=== PATIENT | female | born 1930 | race Caucasian/White ===

== ENCOUNTER → 2017-08-08 | Outpatient (CLI) | payer OTHER, MEDICARE | LOC: BMCIMAGING 09:48 | PROVIDERS: ATTEND Internal Medicine | DX: R91.8 Other nonspecific abnormal finding of lung field (principal) ==

== ENCOUNTER → 2017-08-15 | Outpatient (CLI) | payer OTHER, MEDICARE | LOC: FIMAGING 15:40 | PROVIDERS: ATTEND Internal Medicine | DX: R91.1 Solitary pulmonary nodule (principal); E04.2 Nontoxic multinodular goiter; K80.20 Calculus of gallbladder without cholecystitis without obstruction ==

== ENCOUNTER 2018-01-30 18:17 | Inpatient (IN) | payer OTHER, MEDICARE ==
--- NOTE | 2018-01-30 19:12 | EDPHY ---
HPI/HX/ROS/PE/MDM Narrative: CHIEF COMPLAINT: Difficulty speaking HISTORY OF PRESENT ILLNESS: This patient is an 87 year old female with history of diabetes arriving with her family presenting with difficulty speaking. Symptoms began three days ago. She is able to speak slowly for about 2-3 sentences and then "locks up" and is unable to form her words properly. She feels as if she is unable to say the words she wants to say. Her at bedside states she has no history of Alzheimer's or dementia, but takes Aricept for bipolar disorder. 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 The patient additionally has history of UTIs which generally present as confusion. Three weeks ago, she took a course of Cipro for possible UTI. Three days ago when her current symptoms began, she took a second course of Cipro but her symptoms did not resolve. The patient denies fever, vomiting, or pain. She denies history of stroke or hypertension. No fever, chills, chest pain, shortness of breath, palpitations, vomiting, diarrhea, urinary complaints, headache, lightheadedness. REVIEW OF SYSTEMS: Aside from elements discussed in the HPI, a comprehensive 10-point review of systems was reviewed and is negative. PAST MEDICAL HISTORY: Diabetes. Chronic hip pain. Bipolar. Essential tremor. SOCIAL HISTORY: . Family at bedside. Lives in [place]. VITAL SIGNS: Reviewed by me GENERAL: Slightly overweight, pleasant, elderly female, alert. Resting comfortably in no respiratory distress. HEENT: Atraumatic. Eyes: No icterus, no injection. EOMI, No nystagmus. Mouth: Dry mucous membranes. No erythema or lesions. Neck: supple with no adenopathy. No tenderness. LUNGS: Clear to auscultation bilaterally, no wheezes, rhonchi or rales. CARDIAC: Regular rate and rhythm, no rubs, murmurs or gallops. ABDOMEN: Soft, nontender, nondistended, bowel sounds normal. BACK: No CVA tenderness. EXTREMITIES: No trauma. No edema. Range of motion is normal throughout. NEURO: Alert and oriented to person and place. Moving all extremities x4. Grossly nonfocal. Bilateral upper extremity tremor. SKIN: Warm and dry, no rash. PSYCHIATRIC: Normal mentation, no agitation. Portions of this note were transcribed by a medical observer. I personally performed a history, physical exam, medical decision making, and confirmed accuracy of information the transcribed note. ED Course: 87 y/o female presents with difficulty speaking worsening over the past three days. Plan for EKG, CT head, labs, including CBC, chemistries, troponin, liver, UA. 19:23 CT shows evidence of bilateral intracranial hemorrhagic metastatic disease. Plan for CT head with contrast for further evaluation. Troponin negative. Reassessed patient. She and her family deny any known history of cancer. Lung nodules were noted on prior imaging, but patient's family states they followed up regarding this and further evaluation including biopsy was negative for malignancy. Plan to admit for further evaluation. 20:[address] Steven, neurosurgeon. He recommends MRI and will consult during the patient's admission. 20:16 Consulted with hospitalist service. Dr. Hsieh accepts admission to ICU for altered mental status. intracranial hemorrhagic metastatic disease, and difficulty speaking. MDM: After the history was obtained and physical exam performed, the following differential for the patient's altered mental status was considered included but was not limited to hypoglycemia, electrolyte disturbances, intracranial hemorrhage, tumor, drug or alcohol intoxication, stroke, or TIA. - Data Points Imaging Results: Imaging Impressions Chest X-Ray 01/30/18 19:10 Impression: 1. Multiple pulmonary nodules identified on previous exam are not as conspicuous on current study, which may be related to technique. Consider repeat chest CT as clinically appropriate.. Head CT 01/30/18 19:10 Impression: 1. Multiple intracranial metastases, two of which demonstrate hemorrhagic conversion. Considerations include metastatic disease from lung, kidney, melanoma, breast. 2. Significant underlying white matter disease. Results called to Dr. Gandara at 7:50 p.m. Imaging: Discussed imaging studies w/ analysis consultant Radiologist Laboratory Results: Laboratory Results 01/30/18 19:05 01/30/18 19:05 01/30/18 01/30/18 01/30/18 19:38 19:05 19:05 WBC 5.85 10^3/uL 10^3/uL (3.80-9.50) RBC 4.92 10^6/uL 10^6/uL (4.18-5.33) Hgb 16.6 g/dL H g/dL (12.6-16.3) Hct 46.6 % % (38.0-47.0) MCV 94.7 fL fL (81.5-99.8) MCH 33.7 pg pg (27.9-34.1) MCHC 35.6 g/dL g/dL (32.4-36.7) RDW 12.9 % % (11.5-15.2) Plt Count 135 10^3/uL L 10^3/uL (150-400) MPV 11.2 fL fL (8.7-11.7) Neut % (Auto) 42.4 % % (39.3-74.2) Lymph % (Auto) 43.8 % % (15.0-45.0) Dixie % (Auto) 11.8 % % (4.5-13.0) Eos % (Auto) 1.2 % % (0.6-7.6) Baso % (Auto) 0.3 % % (0.3-1.7) Nucleat RBC Rel Count 1.0 % H % (0.0-0.2) Absolute Neuts (auto) 2.48 10^3/uL 10^3/uL (1.70-6.50) Absolute Lymphs (auto) 2.56 10^3/uL 10^3/uL (1.00-3.00) Absolute Monos (auto) 0.69 10^3/uL 10^3/uL (0.30-0.80) Absolute Eos (auto) 0.07 10^3/uL 10^3/uL (0.03-0.40) Absolute Basos (auto) 0.02 10^3/uL 10^3/uL (0.02-0.10) Absolute Nucleated RBC 0.06 10^3/uL H 10^3/uL (0-0.01) Immature Gran % 0.5 % % (0.0-1.1) Immature Gran # 0.03 10^3/uL 10^3/uL (0.00-0.10) PT 13.2 SEC SEC (12.0-15.0) INR 0.98 (0.83-1.16) Sodium 141 mEq/L mEq/L (135-145) Potassium 4.7 mEq/L mEq/L (3.5-5.2) Chloride 106 mEq/L mEq/L (97-110) Carbon Dioxide 27 mEq/l mEq/l (22-31) Anion Gap 8 mEq/L mEq/L (8-16) BUN 25 mg/dL H mg/dL (7-23) Creatinine 1.1 mg/dL H mg/dL (0.6-1.0) Estimated GFR 47 Glucose 160 mg/dL H mg/dL (70-100) Calcium 9.6 mg/dL mg/dL (8.5-10.4) Total Bilirubin 0.9 mg/dL mg/dL (0.1-1.4) Conjugated Bilirubin 0.6 mg/dL H mg/dL (0.0-0.5) Unconjugated Bilirubin 0.3 mg/dL mg/dL (0.0-1.1) AST 147 IU/L H IU/L (14-46) ALT 113 IU/L H IU/L (9-52) Alkaline Phosphatase 113 IU/L IU/L (38-126) Troponin I < 0.012 ng/mL ng/mL (0.000-0.034) Total Protein 7.0 g/dL g/dL (6.3-8.2) Albumin 3.0 g/dL L g/dL (3.5-5.0) General Time Seen by Provider: 01/30/18 18:45 Initial Vital Signs: Initial Vital Signs Temperature (C) 36.6 C 01/30/18 18:25 Heart Rate 80 01/30/18 18:25 Respiratory Rate 18 01/30/18 18:25 Blood Pressure 151/68 H 01/30/18 18:25 O2 Sat (%) 91 L 01/30/18 18:25 O2 Delivery Mode Room Air Allergies/Adverse Reactions: quetiapine fumarate [From Seroquel] Allergy (Severe, Verified 01/30/18 18:21) Loss of consciousness Home Medications: Medication Instructions Recorded ARICEPT 02/11/11 Insulin 02/11/11 LAMICTAL ODT 02/11/11 LORAZEPAM 02/11/11 PROPRANOLOL HCL 02/11/11 Thyroid Med 02/11/11 ZYPREXA 02/11/11 amLODIPine BESYLATE 02/11/11 Cipro 01/30/18 Departure - Departure Disposition: [facility] Clinical Impression: Brain metastases, Intracranial hemorrhagic metastases, Difficulty with speech Altered mental status Qualifiers: Altered mental status type: unspecified Qualified Code(s): R41.82 - Altered mental status, unspecified Condition: Serious Report Scribed for: Cinthya Gandara Report Scribed by: Sandra White Date of Report: 01/30/18 Time of Report: 20:43
[2018-01-30 19:22] LABS: PLATELET COUNT 135 10^3/uL (150-400)
[2018-01-30] MEDS ORDERED: IOPAMIDOL (ISOVUE 370) 100 ML BTL IV ONE (19:25)
[2018-01-30 19:46] LABS: INR 0.98 (0.83-1.16); PROTIME(PATIENT) 13.2 SEC (12.0-15.0)
[2018-01-30] MEDS ORDERED: ONDANSETRON DISINTEGRATING 4 MG TAB PO PRN (22:14)
[2018-01-30] MEDS ORDERED: ACETAMINOPHEN 325 MG TAB PO PRN (22:14)
[2018-01-30] MEDS ORDERED: ONDANSETRON 4 MG/2 ML VIAL IVP PRN (22:14)
[2018-01-30] MEDS ORDERED: D50W 25 GM/50 ML VIAL IVP PRN (22:18)
[2018-01-30] MEDS ORDERED: GADOBUTROL 10 ML VIAL IVP ONE (23:07)
[2018-01-31] MEDS: hydrALAZINE 20 MG/ML VIAL IVP PRN ×2 (00:12→10:50)
[2018-01-31] MEDS ORDERED: INSULIN GLARGINE 100 UNITS/ML UNIT SC SCH ×2 (00:45→22:15)
[2018-01-31] MEDS ORDERED: LORazepam 0.5 MG TAB PO ONE (00:52)
--- NOTE | 2018-01-31 04:45 | PDGENHP ---
History and Physical - Chief Complaint Aphasia - History of Present Illness 87 yo F w/ BPD, HTN, DM, and skin cancer presents with aphasia. Patient and daughter describe 2-3 days of expressive aphasia. Patient displays word finding difficulty and becomes frustrated at being unable to come up with the right words. She is displaying this during our conversation. Patient has no prior history of stroke. In the ED a CT scan of the brain revealed intracranial lesions with associated hemorrhage. She is being admitted for further work-up. History Information - Allergies/Home Medication List Allergies/Adverse Reactions: quetiapine fumarate [From Seroquel] Allergy (Severe, Verified 01/30/18 18:21) Loss of consciousness Home Medications: Donepezil HCl [Aricept] 10 mg PO DAILY 02/11/11 [Last Taken 01/30/18] Insulin Glargine,Hum.rec.anlog [Lantus Solostar] 30 unit SQ HS 02/11/11 [Last Taken 01/29/18] LORazepam [Ativan (*)] 0.5 mg PO BID@02/11/11 [Last Taken Unknown] OLANZapine [Zyprexa] 5 mg PO HS 02/11/11 [Last Taken 01/29/18] Propranolol HCl [Inderal 20mg (*)] 20 mg PO BID 02/11/11 [Last Taken 01/30/18 09 :00] amLODIPine BESYLATE [Norvasc 5 mg (*)] 5 mg PO DAILY 02/11/11 [Last Taken ] Aspirin EC [Aspirin EC 81 mg (*)] 81 mg PO HS 01/30/18 [Last Taken 01/29/18] Cholecalciferol Vit D3 [Vitamin D3 (*)] 1,000 units PO DAILY 01/30/18 [Last Taken 01/30/18] Ciprofloxacin [Cipro] 500 mg PO BID 01/30/18 [Last Taken 01/30/18 09:00] Cyanocobalamin [Vitamin B12 (*)] 1,000 mcg PO DAILY 01/30/18 [Last Taken ] FLUoxetine [Prozac 20 MG (*)] 20 mg PO BID@08,01/30/18 [Last Taken 01/30/18 12:00] OLANZapine [ZyPREXA 2.5 mg (*)] 2.5 mg PO DAILY@12 01/30/18 [Last Taken 01/30/18 ] Valsartan [Diovan (*)] 160 mg PO BID 01/30/18 [Last Taken 01/30/18 09:00] methYLPHENIDATE HCL [Ritalin 10mg (*)] 10 mg PO BID@08,12 01/30/18 [Last Taken 01/29/18] rOPINIRole HCL [Ropinirole HCl] 0.5 mg PO TID 01/30/18 [Last Taken 01/30/18 09: 00] I have personally reviewed and updated: family history, medical history - Past Medical History diabetes type 2, hypertension Additional medical history: Skin cancer. BPD - Surgical History Reports: hysterectomy Additional surgical history: x2 - Family History Positive for: cancer (Skin cancer) - Social History Smoking Status: Never smoked Review of Systems Review of Systems: ROS: 10pt was reviewed & negative except for what was stated in HPI & below Physical Exam Physical Exam: Temp Pulse Resp BP Pulse Ox 36.3 C 56 L 16 159/62 H 97 01/30/18 23:41 01/31/18 01:00 01/31/18 01:00 01/31/18 01:00 01/31/18 01:00 O2 (L/minute) 2 Constitutional: no apparent distress, not in pain Eyes: PERRL, EOMI Ears, Nose, Mouth, Throat: moist mucous membranes, no oral mucosal ulcers Cardiovascular: regular rate and rhythym, systolic murmur Respiratory: no respiratory distress, clear to auscultation Gastrointestinal: normoactive bowel sounds, soft, non-tender abdomen Skin: normal color Musculoskeletal: full muscle strength, no muscle tenderness Neurologic: CN II-XII Intact, other (A&Ox1, expressive aphasia noted) Psychiatric: interacting appropriately, not anxious Lab Data & Imaging Review 01/30/18 19:05 01/30/18 19:05 WBC 5.85 10^3/uL (3.80-9.50) 01/30/18 19:05 RBC 4.92 10^6/uL (4.18-5.33) 01/30/18 19:05 Hgb 16.6 g/dL (12.6-16.3) H 01/30/18 19:05 Hct 46.6 % (38.0-47.0) 01/30/18 19:05 MCV 94.7 fL (81.5-99.8) 01/30/18 19:05 MCH 33.7 pg (27.9-34.1) 01/30/18 19:05 MCHC 35.6 g/dL (32.4-36.7) 01/30/18 19:05 RDW 12.9 % (11.5-15.2) 01/30/18 19:05 Plt Count 135 10^3/uL (150-400) L 01/30/18 19:05 MPV 11.2 fL (8.7-11.7) 01/30/18 19:05 Neut % (Auto) 42.4 % (39.3-74.2) 01/30/18 19:05 Lymph % (Auto) 43.8 % (15.0-45.0) 01/30/18 19:05 Mcdowell % (Auto) 11.8 % (4.5-13.0) 01/30/18 19:05 Eos % (Auto) 1.2 % (0.6-7.6) 01/30/18 19:05 Baso % (Auto) 0.3 % (0.3-1.7) 01/30/18 19:05 Nucleat RBC Rel Count 1.0 % (0.0-0.2) H 01/30/18 19:05 Absolute Neuts (auto) 2.48 10^3/uL (1.70-6.50) 01/30/18 19:05 Absolute Lymphs (auto) 2.56 10^3/uL (1.00-3.00) 01/30/18 19:05 Absolute Monos (auto) 0.69 10^3/uL (0.30-0.80) 01/30/18 19:05 Absolute Eos (auto) 0.07 10^3/uL (0.03-0.40) 01/30/18 19:05 Absolute Basos (auto) 0.02 10^3/uL (0.02-0.10) 01/30/18 19:05 Absolute Nucleated RBC 0.06 10^3/uL (0-0.01) H 01/30/18 19:05 Immature Gran % 0.5 % (0.0-1.1) 01/30/18 19:05 Immature Gran # 0.03 10^3/uL (0.00-0.10) 01/30/18 19:05 PT 13.2 SEC (12.0-15.0) 01/30/18 19:38 INR 0.98 (0.83-1.16) 01/30/18 19:38 Sodium 141 mEq/L (135-145) 01/30/18 19:05 Potassium 4.7 mEq/L (3.5-5.2) 01/30/18 19:05 Chloride 106 mEq/L (97-110) 01/30/18 19:05 Carbon Dioxide 27 mEq/l (22-31) 01/30/18 19:05 Anion Gap 8 mEq/L (8-16) 01/30/18 19:05 BUN 25 mg/dL (7-23) H 01/30/18 19:05 Creatinine 1.1 mg/dL (0.6-1.0) H 01/30/18 19:05 Estimated GFR 47 01/30/18 19:05 Glucose 160 mg/dL (70-100) H 01/30/18 19:05 POC Glucose 109 mg/dL (70-100) H 01/31/18 00:40 Calcium 9.6 mg/dL (8.5-10.4) 01/30/18 19:05 Total Bilirubin 0.9 mg/dL (0.1-1.4) 01/30/18 19:05 Conjugated Bilirubin 0.6 mg/dL (0.0-0.5) H 01/30/18 19:05 Unconjugated Bilirubin 0.3 mg/dL (0.0-1.1) 01/30/18 19:05 AST 147 IU/L (14-46) H 01/30/18 19:05 ALT 113 IU/L (9-52) H 01/30/18 19:05 Alkaline Phosphatase 113 IU/L (38-126) 01/30/18 19:05 Troponin I < 0.012 ng/mL (0.000-0.034) 01/30/18 19:05 Total Protein 7.0 g/dL (6.3-8.2) 01/30/18 19:05 Albumin 3.0 g/dL (3.5-5.0) L 01/30/18 19:05 Urine Color YELLOW 01/30/18 20:50 Urine Appearance CLEAR 01/30/18 20:50 Urine pH 5.0 (5.0-7.5) 01/30/18 20:50 Ur Specific Britt > 1.035 (1.002-1.030) H 01/30/18 20:50 Urine Protein 2+ (NEGATIVE) H 01/30/18 20:50 Urine Ketones NEGATIVE (NEGATIVE) 01/30/18 20:50 Urine Blood NEGATIVE (NEGATIVE) 01/30/18 20:50 Urine Nitrate NEGATIVE (NEGATIVE) 01/30/18 20:50 Urine Bilirubin NEGATIVE (NEGATIVE) 01/30/18 20:50 Urine Urobilinogen 4.0 EU (0.2-1.0) H 01/30/18 20:50 Ur Leukocyte Esterase NEGATIVE (NEGATIVE) 01/30/18 20:50 Urine RBC NONE SEEN /hpf (0-3) 01/30/18 20:50 Urine WBC 0-1 /hpf (0-3) 01/30/18 20:50 Ur Epithelial Cells TRACE /lpf (NONE-1+) 01/30/18 20:50 Urine Glucose NEGATIVE (NEGATIVE) 01/30/18 20:50 Imaging Review: Imaging Impressions Chest X-Ray 01/30/18 19:10 Impression: 1. Multiple pulmonary nodules identified on previous exam are not as conspicuous on current study, which may be related to technique. Consider repeat chest CT as clinically appropriate.. Head CT 01/30/18 19:10 Impression: 1. Multiple intracranial metastases, two of which demonstrate hemorrhagic conversion. Considerations include metastatic disease from lung, kidney, melanoma, breast. 2. Significant underlying white matter disease. Results called to Dr. Gandara at 7:50 p.m. Assessment & Plan Assessment: 87 yo F w/ BPD, HTN, and DM presents with aphasia and found to have brain lesions. Plan: 1. Intracranial metastases - two of which demonstrate hemorrhagic conversion. Considerations include metastatic disease from lung, kidney, melanoma, and breast. Patient had recent oncologic work-up related to lung nodules that was negative. - Monitor in ICU - MRI brain pending - Maintain SBP<160 - Neurosurgery consulted re: possible biopsy, appreciate assistance 2. Aphasia - Expressive aphasia likely related to lesion in L frontotemporal region. - Speech evaluation ordered 3. IDDM - Patient takes insulin glargine 30 u qHS + SSI. - Will decrease glargine to 10 units tonight noting NPO, continue SSI 4. HTN - On amlodipine and valsartan as outpatient. 5. Bipolar Disorder - Described as "rapid cycling" by daughter. Continue home meds. Diet - NPO pending speech eval Code - DNR per discussion with patient and daughter Ppx - SCDs Dispo - Admit under inpatient status
[2018-01-31 05:33] LABS: PLATELET COUNT 118 10^3/uL (150-400)
--- NOTE | 2018-01-31 08:38 | GCON ---
[f rep st] CONSULTATION NEUROSURGERY CONSULT NOTE DATE OF CONSULTATION: 01/31/2018 Patient was seen and evaluated at approximately 7:30 a.m. on the step-down unit at [facility]. HISTORY OF PRESENT ILLNESS: The patient is an 87-year-old woman with bipolar depression, hypertensio n, and diabetes, who presented with an aphasia. According to the chart, the patient also has a histo ry of skin cancer, although she did not relate this to me when I spoke with her. She has had some wo rd-finding difficulty and trouble coming up with the right words in conversation. She has had no ronny or history of stroke. She presented to the ER last night where a CT of the head was done which showe d multiple lesions with hemosiderin, consistent with metastatic disease. She does have a small lesio n in the left frontal lobe, which may have some bearing on the aphasia. She is admitted for further workup, had a subsequent MRI which shows multiple metastatic contrast enhancing lesions throughout isamar th cerebral hemispheres and the cerebellum. She does not have a known primary, but was being worked up late last year for some lung lesions, which her daughter says were originally thought to be melano ma, but the biopsies and PET scan did not end up revealing any clear diagnosis. REVIEW OF SYSTEMS: A 10-point review of systems is negative other than that described above in the H PI. PAST MEDICAL HISTORY: 1. Diabetes type 2. 2. Hypertension. 3. Bipolar depression. 4. Skin cancer. 5. x2. PAST SURGICAL HISTORY: C-sections x2. ALLERGIES: Seroquel. HOME MEDICATIONS: 1. Aricept. 2. Insulin. 3. Ativan. 4. Zyprexa. 5. Propranolol. 6. Amlodipine. 7. Aspirin. 8. Vitamin D. 9. Cipro. 10. Vitamin B12. 11. Prozac. 12. Zyprexa. 13. Valsartan. 14. Methylphenidate. 15. Ropinirole. SOCIAL HISTORY: The patient is a lifelong nonsmoker. She is accompanied by her daughter. FAMILY HISTORY: Reviewed but is noncontributory to this admission. PHYSICAL EXAMINATION: Currently, she is afebrile with normal stable vital signs. She is awake and a lert. She has marked stuttering of her speech and does seem to have some word-finding difficulties. She also has a marked intention tremor of both arms and legs. This is a chronic issue per her daugh ter. She otherwise appears to have normal intact cranial nerves 2-12. She has full 5/5 strength of the deltoid, biceps, triceps, wrist flexion, extension, and reservoir caretaker bilaterally. In the lower extremiti es she also has 5/5 strength in all muscle groups. She does not have any pronator drift currently. Her sensation is intact. IMAGING REVIEW: See HPI. ASSESSMENT/PLAN: This is an 87-year-old woman who appears to have metastatic disease. My high suspi cion at this point would be likely melanoma, given the amount of hemosiderin that appears to be withi n these lesions. I think she has multiple metastases and will need metastatic workup via the Medicin e team and Oncology. I do not think there is any clear role for surgical intervention at this time, given her age and the fact that she has multiple metastases, but it most likely would be whole-brain radiation if she were to choose that option. I would certainly recommend an oncology consult and fur ther imaging of the chest, abdomen, and pelvis. If diagnosis cannot be obtained then needle biopsy o f 1 of these brain lesions would need to be obtained. We could certainly participate in this. Lali bass, just let us know. She may benefit from some lower dose Decadron in terms of her symptoms. Pradeep nichols, given her dementia and tremor, this may worsen some of these symptoms. I discussed this with her and her daughter, and we will follow along as her workup continues. /[id number]/MODL
--- NOTE | 2018-01-31 09:16 | PDMN ---
Medical Necessity Medical necessity: est los>2mn for new dx of intracranial metastases, w/ hemorrhagic conversion, r/o mets from lung, kidney, melanoma and breast, aphasia ; admit for monitoring in ICU, NS consult; comorbid IDDM, HTN, bipolar; per order and H&P 01/30/18
[2018-01-31] MEDS: INSULIN LISPRO 100 UNIT/ML SC SCH ×3 (09:32→17:04)
[2018-01-31] MEDS ORDERED: SURGIFLO MATRIX KIT WITH THROMBIN 8 ML TP ONE (12:14)
[2018-01-31] MEDS ORDERED: GENTAMICIN SULFATE 80 MG/2 ML VIAL ONE (12:14)
[2018-01-31] MEDS ORDERED: BUPIVACAINE 0.25% 30 ML SDV ONE (12:14)
[2018-01-31] MEDS ORDERED: THROMBIN (BOVINE) 5,000 UNIT VIAL TP ONE (12:14)
[2018-01-31] MEDS ORDERED: AVITENE POWDER 1 GM JAR TP ONE (12:14)
[2018-01-31] MEDS ORDERED: MANNITOL 20% 100 GM/500 ML BAG IV ONE (12:14)
[2018-01-31] MEDS ORDERED: POVIDONE-IODINE 30 GM OINTTUBE TP ONE (12:25)
[2018-01-31] MEDS ORDERED: ACETAMINOPHEN 500 MG TAB PO ONE (12:25)
[2018-01-31] MEDS ORDERED: ceFAZolin 2 GM/SWFI 2 GM/20 ML SYR IVP ONE (12:25)
--- NOTE | 2018-01-31 12:34 | HOSPPROG ---
Hospitalist Progress Note Assessment/Plan: # brain mets with hemorrhagic conversion - noclear primary; has a history of lung nodules which were biopsied and reported as negative - discussed with dr hartman - he will consult - appreciate nsg's involvement - check CT C/A/P - consider steroids # bipolar - cont zyprexa, prozac and ativan # DM - cont glargine 30 and SSI lispro # htn - cont valsartan, propranolol, norvasc Subjective: still having difficulty speaking; i met at length with her and daughter and explained the clinical situation Objective: Vital Signs Temp Pulse Resp BP Pulse Ox 36.4 C 55 L 20 139/58 H 95 01/31/18 08:00 01/31/18 11:15 01/31/18 08:00 01/31/18 11:15 01/31/18 08:00 Laboratory Results 01/31/18 05:14 01/31/18 05:14 01/30/18 01/31/18 02/01/18 05:59 05:59 05:59 Intake Total 0 Balance 0 PT 13.2 SEC (12.0-15.0) 01/30/18 19:38 INR 0.98 (0.83-1.16) 01/30/18 19:38 MRI reviewed - Time Spent With Patient Time Spent with Patient: greater than 35 minutes Time Spent with Patient: Greater than 35 minutes spent on this patients care, greater than 50% of time spent counseling, educating, and coordinating care regarding the above mentioned plan. - Physical Exam Constitutional: no apparent distress, appears nourished, other (tremors) Skin: other (no clear melanoma seen, though she has multiple skin lesions) ICD10 Worksheet Patient Problems: Problems Problem Status Onset Altered mental status Acute Brain metastases Acute Difficulty with speech Acute
[2018-01-31] MEDS ORDERED: IOPAMIDOL (ISOVUE-300) 100 ML BTL ONE (15:26)
--- NOTE | 2018-01-31 18:41 | GCON ---
[f rep st] CONSULTATION ONCOLOGY CONSULTATION NOTE DATE OF CONSULTATION: 01/31/2018 REASON FOR CONSULTATION: Diffuse brain metastasis. HISTORY OF PRESENT ILLNESS: The patient is a pleasant 87-year-old female who presented to [facility] yesterday with aphasia. When seen this evening, she is accompanied by her daughter, Rolando, as well as her grandson. Her daughter reports that the patient has had increased difficulty walking over the past 6 months and has basically become nonambulatory in that time frame. [employer] imaging was done in the ER which revealed evidence of diffuse brain metastasis. A subsequent MRI of the brain revealed extensive intracranial metastatic disease with at least 2 lesions demonstratin g superimposed hemorrhage, 1 within the left temporal frontal region and the 2nd within the right occ ipital region. There are innumerable enhancing lesions present throughout both cerebral and cerebell ar hemispheres. Many small metastatic lesions are present within the parietal regions bilaterally. There is no evidence of midline shift. The patient had a CT of the chest, abdomen and pelvis performed today. She has a history of pulmonar y nodules, which have evidently been biopsied in the past and were felt to be benign. The CT shows s table bilateral pulmonary nodules when compared to a prior study done in August of 2017. There is an enlargement in the left lobe of the thyroid. This has been previously biopsied in 2010 and was re ported as benign. Her CT of the abdomen reveals no concerning findings. She does have diffuse bladd er wall thickening with a small diverticulum. 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 PAST MEDICAL HISTORY: 1. 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 2. Type 2 diabetes. 3. Hypertension. 4. Bipolar disorder. PAST SURGICAL HISTORY: 1. Hysterectomy. 2. section x2. 3. History of wide local excision for melanoma. FAMILY MEDICAL HISTORY: Positive for skin cancer. Otherwise, no known family history of malignancy. SOCIAL HISTORY: The patient and her live locally in [place] as does her daughter, Rolando. S he is a nonsmoker. REVIEW OF SYSTEMS: Somewhat difficult to obtain due to patient's aphasia. She denies any pain at th e current time. Denies headache. Denies visual change. Denies abdominal pain or bloating. Denies chest pain or cough. PHYSICAL EXAM: GENERAL: Somewhat frail-appearing elderly female who is lying in bed. She is in no acute distress. HEENT: Pupils are equal. Sclerae nonicteric. There is no palpable submandibular, cervical or supraclavicular adenopathy. No palpable thyroid mass. BREASTS: Bilateral breast exam d one at the bedside reveals no breast mass or abnormality. No right or left axillary adenopathy. HEA RT: Regular without murmur. LUNGS: Sounds are clear bilaterally without wheeze, rhonchi, or crackl es. ABDOMEN: Soft, nontender, nondistended with no organomegaly or mass. The patient's prior melan samy excision site on the left upper back just above the scapula is identified with no evidence of res idual disease. Patient has significant dysarthria, but is able to answer simple questions and with t belinda is able to complete sentences. Patient's daughter, Rolando, present for entire exam. IMAGING STUDIES: As outlined above. LABORATORY STUDIES: White count 5.09, hemoglobin 15.6, hematocrit 44.0, platelet count is 118,000. Absolute neutrophil count is 1,590. Sodium 145, potassium 3.9, chloride 111, bicarb 28, BUN 29, crea tinine 0.9. Total bilirubin 0.9, AST 147, ALT 113, alkaline phosphatase 113, total protein 7.0. IMPRESSION: 1. Diffuse brain metastasis. 2. History of cutaneous melanoma. The patient is a pleasant 87-year-old female who presents with extensive widespread diffuse intracran ial metastasis. There is a small hemorrhagic component in 2 of the brain metastases. The patient dominique s had a fairly gradual decline over the past 6 months, suggesting these were present during that nay od of time. The clinical picture is highly suggestive of metastatic melanoma. The patient does indeed have a his tory of a cutaneous melanoma excised from her left upper back approximately 2 years ago. At the time of my visit with her this evening, the pathologic details of that melanoma are not available. Her CT of the chest, abdomen, and pelvis does not show any other obvious site of disease. I do not b elieve the enlargement of her left thyroid accounts for her current picture. She has no palpable mas s on bilateral breast exam. I met with the family at length this evening. I indicated to the patient and her family, I think it is highly likely this represents metastatic melanoma. We did discuss the overall treatment of [facility] and specifically discussed recent developments including targeted therapy for BRAF posi tive metastatic melanoma as well as the use of immunotherapy. These treatments can sometimes be succ essful in terms of treating and palliating patients with [employer] involvement. The chance of success is ishaan perkins with patients who have BRAF mutated disease. I explained that treatment would best be accompl ished by proceeding with a diagnostic brain biopsy to confirm the presumptive diagnosis of metastatic melanoma. I was very clear to the patient and her family that I do not believe her neurologic sympt oms would definitely improve and that it is possible she would not get a significant improvement in h er current state of neurologic injury given the widespread nature of her disease. I also made it beti ar that treatment would be palliative and not curative. The patient was very clear this evening that she would not want any further treatment. She stated ve ry clearly that as she is 87 years of age, she feels she has had a good life, she feels her quality o f life now is quite poor given her neurologic injury and would not want any further therapy, would no t want to go through any invasive procedures such as a brain biopsy. I think her decision is quite r easonable and I support this. Her family members appeared supportive of this as well, but did want t o take time to discuss things at length and also to discuss things with her who was unable to be present during my meeting this evening. Our service will continue to follow the patient. The patient and family's questions were answered. Total time for this evening's visit was approximately 60 minutes of which greater than 50% was spent in counseling and care coordination. /[id number]/MODL
[2018-01-31] MEDS ORDERED: INSULIN GLARGINE HUM REC ANLOG 30 UNIT SQ SCH (21:00)
[2018-01-31] MEDS ORDERED: OLANZapine 5 MG TAB PO SCH (21:00)
[2018-01-31] MEDS: VALSARTAN 160 MG TAB PO SCH (21:57)
[2018-01-31] MEDS: LORazepam 1 MG TAB PO SCH (22:01)
[2018-01-31] MEDS: PROPRANOLOL HCL 20 MG TAB PO SCH (22:19)
[2018-02-01] MEDS: hydrALAZINE 20 MG/ML VIAL IVP PRN (07:18)
[2018-02-01] MEDS: INSULIN LISPRO 100 UNIT/ML SC SCH ×2 (07:49→12:41)
[2018-02-01] MEDS ORDERED: amLODIPine BESYLATE 5 MG TAB PO SCH (09:00)
[2018-02-01] MEDS ORDERED: DONEPEZIL HCL 5 MG TAB PO SCH (09:00)
[2018-02-01] MEDS: PROPRANOLOL HCL 20 MG TAB PO SCH (09:04)
[2018-02-01] MEDS: FLUoxetine 20 MG CAP PO SCH ×2 (09:05→12:41)
[2018-02-01] MEDS: VALSARTAN 160 MG TAB PO SCH (09:05)
[2018-02-01] MEDS ORDERED: OLANZapine 2.5 MG TAB PO SCH (12:00)
--- NOTE | 2018-02-01 12:15 | HOSPPROG ---
Hospitalist Progress Note Assessment/Plan: Bhavna is an 87 y/o female who presented to the ER w aphasia. Today is my first encounter w the patient, chart reviewed. 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 Dr. Mancilla and myself met with the family. We discussed treatment options versus no treatment. The patient does not want any type of biopsy. She would like to see how she does with a dose of Decadron. She continues to have difficulty with speaking. She also has a history of bipolar disorder and will see how she does with the Decadron. Also the family is requesting for evaluation by hospice. This will be done this afternoon. Will further evaluate later this afternoon. She will likely be discharged today or tomorrow morning Subjective: Bhavna is sad about her prognosis. Loves going to the zoo. Misses riding her bike and skiing. Has no c/o pain. Objective: Vital Signs Temp Pulse Resp BP Pulse Ox 36.8 C 56 L 15 155/75 H 96 02/01/18 11:32 02/01/18 11:32 02/01/18 11:32 02/01/18 11:32 02/01/18 11:32 Laboratory Results 01/31/18 05:14 01/31/18 05:14 01/31/18 02/01/18 02/02/18 05:59 05:59 05:59 Intake Total 0 1000 Balance 0 1000 PT 13.2 SEC (12.0-15.0) 01/30/18 19:38 INR 0.98 (0.83-1.16) 01/30/18 19:38 - Physical Exam Constitutional: not in pain, chronically ill appearing, obese Eyes: PERRL Ears, Nose, Mouth, Throat: hard of hearing Respiratory: no respiratory distress Skin: warm Psychiatric: interacting appropriately, thought process linear ICD10 Worksheet Patient Problems: Problems Problem Status Onset Altered mental status Acute Brain metastases Acute Difficulty with speech Acute
--- NOTE | 2018-02-01 13:28 | SOAPPROG ---
SOAP Progress Note Assessment/Plan: Assessment/Plan: 87 yo woman who p/w dysarthria discovered to have innumerable brain mets and evidence of cerebral hemaorrhage had a 20 min discussion w family again today CT CAP w no new areas amenable to biopsy (lung nodules apparently biopsied before and were non-diagnostic?) confirmatory dx would require brain biopsy and pt not willing to undergo this procedure Pt made it clear that she has NEVER had melanoma nonetheless, only treatment at this time could be WBXRT which would lead to further cognitive decline Trial of dex 2mg [id number] as pt tolerates in addition to Ativan Agree w home hospice Family agrees 02/01/18 13:25 Subjective: No acute events remains dysarthric Objective: Vital Signs Temp Pulse Resp BP Pulse Ox 36.8 C 56 L 15 155/75 H 96 02/01/18 11:32 02/01/18 11:32 02/01/18 11:32 02/01/18 11:32 02/01/18 11:32 Laboratory Results 01/31/18 05:14 01/31/18 05:14 01/31/18 02/01/18 02/02/18 05:59 05:59 05:59 Intake Total 0 1000 Balance 0 1000 PT 13.2 SEC (12.0-15.0) 01/30/18 19:38 INR 0.98 (0.83-1.16) 01/30/18 19:38 Gen - NAD, elderly Neuro - dysarthria and bilateral arm and facial tremors ICD10 Worksheet Patient Problems: Problems Problem Status Onset Altered mental status Acute Brain metastases Acute Difficulty with speech Acute
[2018-02-01] MEDS ORDERED: DEXAMETHASONE 4 MG TAB PO SCH (13:30)
--- NOTE | 2018-02-01 15:08 | ASMTCMCOM ---
CM Note CM Note Notes: Pt here with brain mets, pt not wishing to have brain biopsy at this time. Discussed w/Hospitalist and oncologist. did palliative consult w/myself, cuca Jackman, pt, , and daughter. Pt wishes to go home w/hospice and family supportive of this. They would like to take her home today if possible. Family will be with her 30/04 and feel they can mange at home with family support. Pt also has other daughter that is local and some grandchildren. [facility] able to come at 3:15 today. CM will follow. Date Signed: 02/01/2018 03:07 PM Electronically Signed By:Estephania Nava RN
[2018-02-01] MEDS: LORazepam 1 MG TAB PO SCH (15:28)
[2018-02-01 16:08] VITALS: BP 150/60
--- NOTE | 2018-02-01 16:08 | PDIAF ---
- Diagnosis Diagnosis: brain mets Code Status: Do Not Resuscitate - Medication Management Discharge Medications: Medications to Continue on Transfer Donepezil HCl [Aricept] 10 mg PO DAILY 02/11/11 [Last Taken 01/30/18] Insulin Glargine,Hum.rec.anlog [Lantus Solostar] 30 unit SQ HS 02/11/11 [Last Taken 01/29/18] LORazepam [Ativan (*)] 0.5 mg PO BID@02/11/11 [Last Taken Unknown] OLANZapine [Zyprexa] 5 mg PO HS 02/11/11 [Last Taken 01/29/18] Propranolol HCl [Inderal 20mg (*)] 20 mg PO BID 02/11/11 [Last Taken 01/30/18 09 :00] amLODIPine BESYLATE [Norvasc 5 mg (*)] 5 mg PO DAILY 02/11/11 [Last Taken ] Aspirin EC [Aspirin EC 81 mg (*)] 81 mg PO HS 01/30/18 [Last Taken 01/29/18] Cholecalciferol Vit D3 [Vitamin D3 (*)] 1,000 units PO DAILY 01/30/18 [Last Taken 01/30/18] Cyanocobalamin [Vitamin B12 (*)] 1,000 mcg PO DAILY 01/30/18 [Last Taken ] FLUoxetine [Prozac 20 MG (*)] 20 mg PO BID@,01/30/18 [Last Taken 01/30/18 12:00] OLANZapine [ZyPREXA 2.5 mg (*)] 2.5 mg PO DAILY@01/30/18 [Last Taken 01/30/18 ] Valsartan [Diovan (*)] 160 mg PO BID 01/30/18 [Last Taken 01/30/18 09:00] methYLPHENIDATE HCL [Ritalin 10mg (*)] 10 mg PO BID@,01/30/18 [Last Taken 01/29/18] rOPINIRole HCL [Ropinirole HCl] 0.5 mg PO TID 01/30/18 [Last Taken 01/30/18 09: 00] Dexamethasone [Decadron 4 MG (*)] 2 mg PO Q6 #20 tab 02/01/18 [Last Taken Unknown] Discharge Medications: Refer to the Discharge Home Medication list for PRN reason. PICC Care - Routine: N/A - Orders Services needed: Home Care, Registered Nurse Home Care Face to Face: I certify that this patient was under my care and that I had the required [id number] encounter meeting the encounter requirements on the discharge day. My findings support the fact that the patient is homebound as defined in Home Care Face to Face Continued: CMS Chapter 7 Medicare Benefits Manual 30.1.1 , The condition of the patient is such that there exists a normal inability to leave home and consequently, leaving home would require a considerable and taxing effort. Diet Recommendation: no restrictions on diet Diet Texture: Regular Texture Diet, Thin Liquids, Meds Whole w/Liquids Additional Instructions: take the Decadron to help with the brain swelling, If Vera gets too agitated or anxious; would recommend stopping this medication. Script was sent to [facility] s pharmacy here for convenience. Care per hospice. - Follow Up Care Current Providers and Referrals: Azucena Nguyen MD [Primary Care Provider] - As per Instructions
--- NOTE | 2018-02-01 16:58 | ASDISCHSUM ---
Discharge Information Plan Status:Hospice-Home Medically Cleared to Leave: Discharge Date:02/01/2018 04:53 PM D/C Disposition:Hospice Home ADT D/C Disposition:Hospice Home Projected Discharge Date:02/01/2018 11:00 AM Transportation at D/C:Family Discharge Delay Reason: Follow-Up Date:02/01/2018 11:00 AM Discharge Slot: Final Diagnosis: Placement Information Referral Type:*Hospice Referral ID:[id number] Provider Name:[facility] Address 1:[address] [place] Address 2: City:[place] Selection Factors: State:[place] Patient Contact Information Contact Name:YURY Relationship: Address:[address] City:[place] Alternate Phone: State/Zip Code:[place] [address] Email: Financial Information Financial Class:Medicare Primary Plan Desc:MEDICARE INPATIENT Primary Plan Number:[id number] Secondary Plan Desc:[employer]/MDR SUPPLEMENT Secondary Plan Number:[id number] Assessment Information [facility] CM Progress Note CM Note CM Note Notes: Pt here with brain mets, pt not wishing to have brain biopsy at this time. Discussed w/Hospitalist and oncologist. did palliative consult w/myself, cuca Jackman, pt, , and daughter. Pt wishes to go home w/hospice and family supportive of this. They would like to take her home today if possible. Family will be with her 30/04 and feel they can mange at home with family support. Pt also has other daughter that is local and some grandchildren. [facility] able to come at 3:15 today. CM will follow. Date Signed: 02/01/2018 03:07 PM Electronically Signed By:Estephania Nava RN [facility] CM Progress Note CM Note CM Note Notes: Pt medically stable for d/c home with family and [facility]. Orders printed for Angella from [facility]. Family to transport. Date Signed: 02/01/2018 04:57 PM Electronically Signed By:SUGAR Harmon Intervention Information
--- NOTE | 2018-02-01 17:05 | GDS ---
[f rep st] DISCHARGE SUMMARY DISCHARGE DIAGNOSES: 1. Brain metastasis with hemorrhagic conversion. 2. Bipolar disorder. 3. Diabetes. 4. Hypertension. CONSULTATIONS: 1. Dr. Aguila Steven. 2. Dr. Mcghee. HOSPITAL COURSE: Briefly, the patient is an 87-year-old woman who presented to [facility] with aphasia. The patient has been having increased difficulty walking over the past 6 months and has become nonambulatory. She had an MRI of the brain performed, which revealed extensive intracranial metastatic disease with at least 2 lesions demonstrating superimposed hemorrhage , 1 within the left temporal region and the 2nd within the right occipital region. There are enumerable enhancing lesions present through both the cerebral and cerebellar hemisphere. Also has noted that she had many small metastatic lesions in the parietal regions bilateral. A CT of the chest, abdomen, and pelvis was performed to see if there was any place to biopsy. It noted that she had pulmonary nodules that have been biopsied in the past and felt to be benign. She is enlarged in the left lobe of the thyroid. This was biopsied and noted to be benign. The CT of the abdomen revealed no concerning findings. She was seen and evaluated by myself and with Dr. Mancilla with Oncology. The patient does not want any interventions at this time or any further interventions except for supportive care. She will be discharged home with Decadron to see if this helps with her aphasia due to the swelling in her brain. I reviewed the impact of taking Decadron because the patient does has bipolar disorder. Reviewed with the family, if the patient becomes confused and agitated, to stop this medication. She is being discharged this evening with hospice care. I called Dr. Nguyen, who is her primary care provider, to update her on the plan of care. CONDITION AT DISCHARGE: Stable. Blood pressure is 150/60, heart rate of 57, respiratory rate is 20, O2 sats on room air 97%, temperature 36.8 Celsius. MEDICATIONS AT DISCHARGE: Please see the EMR. DISCHARGE INSTRUCTIONS: Further followup with hospice. Greater than 45 minutes discharging and coordinating the patient's care today. /[id number]/MODL MTDD
== END 2018-02-01 16:53 | disposition hospice, home (50) | DRG 54 ==
LOC: F2N 22:34 → F3N 01-31 12:44
PROVIDERS: ADMIT Family Medicine; ATTEND Family Medicine
DX: C79.31 Secondary malignant neoplasm of brain (principal); R47.01 Aphasia; I61.4 Nontraumatic intracerebral hemorrhage in cerebellum; R91.8 Other nonspecific abnormal finding of lung field; E11.9 Type 2 diabetes mellitus without complications; E04.9 Nontoxic goiter, unspecified; I10 Essential (primary) hypertension; F31.9 Bipolar disorder, unspecified; Z87.440 Personal history of urinary (tract) infections; Z79.4 Long term (current) use of insulin; Z66 Do not resuscitate
CPT/HCPCS: 92523-GN; 92526-GN; 92610-GN; A9585; G8996-GN-CJ; G8997-GN-CI; J0171; J0360; J1580; J1815; Q9967